=== PATIENT | male | born 1955 | race Caucasian/White ===

== ENCOUNTER 2017-01-15 18:29 | Emergency (ER) | payer OTHER, SELFPAY ==
--- NOTE | 2017-01-15 20:19 | C.PDOC ---
History Of Present Illness 61 year old patient, with a past medical history of hypertension and asthma, presents to the ED requesting a medical refill. Patient states he ran out of Metformin and Amlidipine. Patient reports his PCP has been away for about 2 months and he has been unable to get a prescription. Patient complains of a tingling sensation in his right hand fingers for a week. Patient also complains of left shoulder pain for the past 2 weeks. Patient denies taking any medications for the pain, trauma, fall, weakness, neck pain, back pain, chest pain or shortness of breath. Time Seen by Provider: 01/15/17 20:02 Chief Complaint (Nursing): Upper Extremity Problem/Injury History Per: Patient History/Exam Limitations: no limitations Onset/Duration Of Symptoms: Other Current Symptoms Are (Timing): Still Present Quality: "Pain" Severity: Mild Pain Scale Rating Of: 3 Exacerbating Factor(s): Movement Recent travel outside of the [place]: No Past Medical History Reviewed: Historical Data, Nursing Documentation, Vital Signs Vital Signs: Last Vital Signs Temp 98.1 F 01/15/17 20:50 Pulse 76 01/15/17 20:50 Resp 20 01/15/17 20:50 BP 133/76 01/15/17 20:50 Pulse Ox 97 01/15/17 20:50 - Medical History PMH: Asthma, HTN - [facility] Procedures ESOPHAGOGASTRODUODENOSCOPY [EGD] W/CLOSED BIOPSY (09/25/13) PACKED CELL TRANSFUSION (09/25/13) Family History: States: Unknown Family Hx - Social History Hx Tobacco Use: No Hx Alcohol Use: No Hx Substance Use: No - Immunization History Hx Tetanus Toxoid Vaccination: No Hx Influenza Vaccination: No Hx Pneumococcal Vaccination: No Review Of Systems Except As Marked, All Systems Reviewed And Found Negative. Cardiovascular: Negative for: Chest Pain Respiratory: Negative for: Shortness of Breath Musculoskeletal: Positive for: Shoulder Pain (left). Negative for: Neck Pain, Back Pain Neurological: Negative for: Weakness Physical Exam - Physical Exam Appears: Non-toxic, No Acute Distress Skin: Warm, Dry Head: Atraumatic, Normacephalic Eye(s): bilateral: Normal Inspection, EOMI Neck: Normal ROM, Supple Chest: Symmetrical Cardiovascular: Rhythm Regular Back: Normal Inspection Extremity: Normal ROM, Capillary Refill (within normal limits), No Deformity, No Swelling, Other (left shoulder: ROM limited due to pain) Neurological/Psych: Oriented x3, Normal Speech, Normal Cognition, Normal Motor, Normal Sensation Gait: Steady ED Course And Treatment O2 Sat by Pulse Oximetry: 97 (RA) Pulse Ox Interpretation: Normal Progress Note: Patient's medications are refilled. Motrin is recommended to take to alleviate the pain. Accucheck is 153 mg/dL. Disposition Counseled Patient/Family Regarding: Diagnosis, Need For Followup, Rx Given - Disposition Referrals: August Elena MD [Staff Provider] - Disposition: HOME/ ROUTINE Disposition Time: 20:17 Condition: STABLE Additional Instructions: Please follow up with PMD Return to ER if worse Prescriptions: Ibuprofen [Motrin] 1 tab PO TID PRN #30 tab PRN Reason: Pain amLODIPine [Norvasc] 5 mg PO DAILY #30 tab metFORMIN [glucOPHAGE] 500 mg PO BID #60 tab Instructions: Paresthesia (ED) - Clinical Impression Clinical Impression: Medication refill, Paresthesia - PA / LUBRICATING SPECIALIST / Resident Statement MD/DO has reviewed & agrees with the documentation as recorded. - Scribe Statement The provider has reviewed the documentation as recorded by the Scribe Lili Middleton All medical record entries made by the Scribe were at my direction and personally dictated by me. I have reviewed the chart and agree that the record accurately reflects my personal performance of the history, physical exam, medical decision making, and the department course for this patient. I have also personally directed, reviewed, and agree with the discharge instructions and disposition.
[2017-01-15 21:08] VITALS: BP 133/76; PULSE 76; RESP 20; TEMP 98.1; O2SAT 97
== END 2017-01-15 20:55 | disposition home or self-care (01) ==
LOC: C.ER 18:29
DX: R20.9 Unspecified disturbances of skin sensation (principal); Z76.0 Encounter for issue of repeat prescription

== ENCOUNTER 2017-05-14 16:56 | Emergency (ER) | payer OTHER, SELFPAY ==
[2017-05-14 17:22] VITALS: O2SAT 98; BMI 31.1
[2017-05-14 18:19] LABS: URINE BILIRUBIN NEGATIVE (NEGATIVE); URINE BLOOD NEGATIVE (NEGATIVE); URINE CLARITY Clear (Clear); URINE COLOR Straw (YELLOW); URINE GLUCOSE (UA) NORMAL (Normal); URINE LEUKOCYTE ESTERASE NEG Leu/uL (Negative); URINE NITRATE NEGATIVE (NEGATIVE); URINE PROTEIN NEGATIVE (NEGATIVE); URINE UROBILINOGEN NORMAL mg/dL (0.2-1.0)
[2017-05-14 19:18] LABS: BASO # 0.1 K/uL (0.0-0.2); BASO % 0.7 % (0.0-2.0); EOS # 0.2 K/uL (0.0-0.7); EOS % 2.4 % (0.0-4.0); HEMOGLOBIN 12.4 g/dL (12.0-18.0); LYMPH # 2.9 K/uL (1.0-4.3); LYMPH % 34.4 % (20.0-40.0); MEAN CELL VOLUME 73.9 fL (80.0-94.0); MEAN CORPUSCULAR HEMOGLOBIN 23.4 pg (27.0-31.0); MEAN CORPUSCULAR HGB CONC 31.7 g/dL (33.0-37.0); MEAN PLATELET VOLUME 9.8 fL (7.2-11.7); MONO # 0.8 K/uL (0.0-0.8); MONO % 9.6 % (0.0-10.0); NEUT # 4.4 K/uL (1.8-7.0); NEUT % 52.9 % (50.0-75.0); RBC 5.3 Mil/uL (4.40-5.90); RED CELL DISTRIBUTION WIDTH 15.9 % (11.5-14.5); WHITE BLOOD COUNT 8.4 K/uL (4.8-10.8)
--- NOTE | 2017-05-14 19:44 | C.PDOC ---
History Of Present Illness 62 year old male who presents to the ER with a complaint of a left sided cramping, colicky abdominal pain and mild pedal edema that worsens in the evening and improves with laying supine. Patient states pain resolved prior to evaluation; denies fever, chills, nausea, or vomiting. Time Seen by Provider: 05/14/17 19:31 Chief Complaint (Nursing): Abdominal Pain History Per: Patient History/Exam Limitations: no limitations Onset/Duration Of Symptoms: Days Current Symptoms Are (Timing): Still Present Location Of Pain/Discomfort: LUQ, LLQ Radiation Of Pain To:: None Quality Of Discomfort: Cramping, Other (Colicky) Associated Symptoms: denies: Fever, Chills, Nausea, Vomiting Exacerbating Factors: None Alleviating Factors: None Recent travel outside of the [place]: No Past Medical History Reviewed: Historical Data, Nursing Documentation, Vital Signs Vital Signs: Last Vital Signs Temp 98 F 05/14/17 22:14 Pulse 65 05/14/17 22:14 Resp 20 05/14/17 22:14 BP 135/77 05/14/17 22:14 Pulse Ox 98 05/14/17 22:14 - Medical History PMH: Asthma, HTN - [facility] Procedures ESOPHAGOGASTRODUODENOSCOPY [EGD] W/CLOSED BIOPSY (09/25/13) PACKED CELL TRANSFUSION (09/25/13) Family History: States: Unknown Family Hx - Social History Hx Tobacco Use: No Hx Alcohol Use: No Hx Substance Use: No - Immunization History Hx Tetanus Toxoid Vaccination: No Hx Influenza Vaccination: No Hx Pneumococcal Vaccination: No Review Of Systems Constitutional: Negative for: Fever, Chills Gastrointestinal: Positive for: Abdominal Pain. Negative for: Nausea, Vomiting Physical Exam - Physical Exam Appears: Non-toxic, No Acute Distress, Other (Obese) Skin: Normal Color, Warm, Dry Head: Atraumatic, Normacephalic Oral Mucosa: Moist Chest: Symmetrical, No Tenderness Cardiovascular: Rhythm Regular, No Murmur Respiratory: Normal Breath Sounds, No Rales, No Rhonchi, No Wheezing Gastrointestinal/Abdominal: Soft, No Tenderness, Other (Obese. Dull to percussion.) Extremity: Pedal Edema (Trace, bilaterally, symmetrically) Neurological/Psych: Oriented x3, Normal Speech, Normal Cognition ED Course And Treatment - Laboratory Results Result Diagrams: 05/14/17 19:09 05/14/17 20:41 Lab Interpretation: Normal (d-dimer neg) ECG: Interpreted By Me ECG Rhythm: Sinus Rhythm ECG Interpretation: Normal Rate From EC O2 Sat by Pulse Oximetry: 98 Pulse Ox Interpretation: Normal - Radiology CXR: Interpreted by Me CXR Interpretation: Yes: No Acute Disease - Other Rad abd x 2 X-Ray: Interpreted by Me (+FOS) Progress Note: Toradol administered. EKG and abdominal x-ray ordered. Reevaluation Time: 21:45 Reassessment Condition: Improved Medical Decision Making Medical Decision Making: abdominal colic, diabetic, obese, constipated, no obstruction. Disposition Doctor Will See Patient In The: Office Counseled Patient/Family Regarding: Studies Performed, Diagnosis - Disposition [facility] Disposition: HOME/ ROUTINE Disposition Time: 21:45 Condition: GOOD Additional Instructions: drink a bottle of Mag Citrate now (laxative) and re-evaluate your abdominal discomfort after using the bathroom 2-3 times. Continue Colace 100 mg (stool softner) twice a day to help PREVENT constipation. Follow-up in our Clinic as needed. Prescriptions: Docusate [Colace] 100 mg PO BID #60 cap Instructions: Constipation (ED), Gas and Bloating (ED) - Clinical Impression Clinical Impression: Abdominal colic - Scribe Statement The provider has reviewed the documentation as recorded by the Scribe Schuyler Moffett All medical record entries made by the Scribe were at my direction and personally dictated by me. I have reviewed the chart and agree that the record accurately reflects my personal performance of the history, physical exam, medical decision making, and the department course for this patient. I have also personally directed, reviewed, and agree with the discharge instructions and disposition.
[2017-05-14 20:58] LABS: GFR AFRICAN-AMERICAN > 60; GFR NON-AFRICAN AMERICAN > 60
[2017-05-14 20:59] LABS: ALB/GLOB RATIO 1.4 (1.0-2.1); ALT/SGPT 34 U/L (21-72); AST/SGOT 22 U/L (17-59); BLOOD UREA NITROGEN 11 mg/dL (9-20); CALCIUM 8.5 mg/dl (8.6-10.4)
[2017-05-14 21:09] LABS: B-TYPE NATRIURETIC PEPTIDE 56.4 pg/mL (0-900)
[2017-05-14 21:17] LABS: INR 1.1; PARTIAL THROMBOPLASTIN TIME 35 SECONDS (21-34); PROTHROMBIN TIME 12.7 SECONDS (9.7-12.2)
[2017-05-14 21:19] LABS: D DIMER < 200 ng/mlDDU (0-243)
[2017-05-14 22:16] VITALS: BP 135/77; PULSE 65; RESP 20; TEMP 98
--- NOTE | 2017-05-15 09:31 | RAD ---
Abdomen four views History: Abdominal pain. Comparison: None available. Findings: Diffuse increased interstitial lung markings. Patchy increased markings at the left lung base. Tortuous aorta. Heart size within normal limits. Degenerative changes in the spine and shoulders. Moderate fecal retention the colon. Few distended loops of small bowel in the mid abdomen. Degenerative changes in the spine. Calcified phleboliths in the pelvis. Impression: Nonspecific bowel gas pattern with moderate fecal retention in the colon and a few distended loops of small bowel in the mid abdomen.
--- NOTE | 2017-05-16 09:01 | CARD ---
APPROVED REPORT EKG Measurement Heart [id number] IN [id number] <Conclusion> Sinus bradycardia Otherwise normal ECG
== END 2017-05-14 22:16 | disposition home or self-care (01) ==
LOC: C.ER 16:56
DX: R10.84 Generalized abdominal pain (principal); I10 Essential (primary) hypertension
CPT/HCPCS: 74022; 80053; 81001; 83880; 84443; 84484; 85025; 85378; 85610; 85730; 96374; 99285; J1885